=== PATIENT | female | born 1990 | race Caucasian/White ===

== ENCOUNTER → 2017-02-24 | Outpatient (CLI) | payer OTHER ==
--- NOTE | ~2017-02-24 | CNG ---
[facility] [place] [address] CYTO-NONGYN REPORT PROCEDURE Name: LOLY ESCOBAR Room #: REG BERTA Hudson.Luly.#: [id number] Admission: 02/24/17 Date of : 89 Discharge: Report #: [id number] Path Case #: [id number] CYTOPATHOLOGY REPORT COLLECTION DATE: 02/24/2017 RECEIVED DATE: 02/24/2017 SUBMITTING PHYS: Dr. Gunnar Wilkinson OTHER PHYS: CLINICAL HISTORY: Right thyroid nodule SPECIMEN(S) RECEIVED: A.Fine needle aspiration,Right thyroid * * * * * * * * * * * * FINAL DIAGNOSIS: A. Thyroid, Right thyroid, Fine needle aspiration: BETHESDA CATEGORY II. SPECIMEN CONSISTS OF FOLLICULAR CELLS, HEMOSIDERIN-LADEN MACROPHAGES, (DENSE AND WATERY) COLLOID, FAVOR AN ADENOMATOID NODULE, SEE COMMENT. COMMENT: Examination shows a scantly cellular specimen with rare macrofollicles, numerous microfollicles, Hurthle cells, macrophages as well as dense and watery colloid. Nuclear features of papillary thyroid carcinoma are not seen in the few follicular cells. The concurrent biopsy tissue had no thyroid parenchyma sampled. Please refer to a separate report, [id number] for details. Findings in the current aspirate are suggestive of an adenomatoid nodule; however, due to low cellularity (with cells present only one pass of the three passes performed) a sampling bias cannot be excluded. Sample may not be renewals representative. Please correlate clinically and follow-up as indicated. PATHOLOGIST: Gisele Sanderson M.D. REPORT ELECTRONICALLY SIGNED BY: Gisele Sanderson M.D. DATE/TIME: 02/27/2017 16:54 * * * * * * * * * * * * GROSS PATHOLOGY: A. Fine needle aspiration,Right thyroid: The specimen is labeled "Loly Escobar" and consists of three fixed slides, three air dried slides. Twenty-five mL of clear red fluid in fixative from the needle rinse is also submitted and one ThinPrep slide was prepared from this material. (mm 02.24.2017) CATTLE DEALER(S): AISHWARYA Rojas(ASCP) [facility] [address] [place] [address] CYTO-NONGYN REPORT PROCEDURE Name: LOLY ESCOBAR [facility] [id number] Admission: 02/24/17 Date of : 89 Discharge: Report #: [id number] Path Case #: [id number] INITIAL CPT CODE(S): A; 51317 Professional services performed by [facility] at [address], [place] [address] Technical services performed by [facility] at [address] [place] [address], [address] [address]. [facility] [address] [place] [address], [facility] [place] [address] [place] [address] PHONE: [phone] DIRECTOR: Yan Gill M.D. * * * END OF REPORT * * *
--- NOTE | ~2017-02-24 | S ---
[facility] [place] [address] SURGICAL PATH RPT PROCEDURE Name: LOLY ESCOBAR Room #: REG BERTA M.R.#: [id number] Admission: 02/24/17 Date of : 89 Discharge: Report #: [id number] Path Case #: [id number] PATHOLOGY REPORT COLLECTION DATE: 02/24/2017 RECEIVED DATE: 02/24/2017 SUBMITTING PHYS: Dr. Gunnar Wilkinson OTHER PHYS: SPECIMEN(S) RECEIVED: A.Rt thyroid biopsy * * * * * * * * * * * * FINAL DIAGNOSIS: Thyroid nodule, right, core needle biopsy: - Hypocellular specimen with scant fragments of fibrous tissue and skeletal muscle. - No definite thyroid parenchyma identified. (SKM:mgr; 02/27/2017) PATHOLOGIST: Yuriy Frye M.D. REPORT ELECTRONICALLY SIGNED BY: Yuriy Frye M.D. DATE/TIME: 02/28/2017 08:09 * * * * * * * * * * * * GROSS PATHOLOGY: The specimen is received in formalin, labeled "Loly Escobar, right thyroid nodule biopsy." Received is a 0.6 x 0.6 x 0.2 cm aggregate of light santillan to light brown, friable soft tissue. The specimen is filtered and submitted entirely in cassette A1. (KAH; 02/25/2017) CLINICAL HISTORY: Nodule INITIAL CPT CODE(S): A; 17741 Professional services performed by [facility] at [facility] [address], [place] [address] Technical services performed by [facility] at [address] [place] [address], [address] [address]. [facility] [address] [place] [address] SURGICAL PATH RPT PROCEDURE Name: LOLY ESCOBAR Room #: REG BERTA GonzalezR.#: [id number] Admission: 02/24/17 Date of : 89 Discharge: Report #: [id number] Path Case #: [id number] [facility] [id number] [address] PHONE: [phone] DIRECTOR: Yan Gill M.D. * * * END OF REPORT * * *
== END | disposition home or self-care (01) ==
LOC: ULTRA 08:52
DX: E04.1 Nontoxic single thyroid nodule (principal)